=== PATIENT | male | born 1975 | race Caucasian/White ===

== ENCOUNTER 2020-04-27 08:46 | Emergency (ER) | payer OTHER, SELFPAY ==
--- NOTE | ~2020-04-27 | XR_ITS ---
XR ankle RT min 3V DATE: 04/27/2020 09:06 INDICATION: Right ankle pain and swelling. No known injury. TECHNIQUE: 4 views COMPARISON: None FINDINGS: There is mild lateral soft tissue swelling. No fracture or dislocation of the ankle or disruption of the ankle mortise is detected. IMPRESSION: Mild lateral soft tissue swelling Reviewed, dictated and finalized at location B. O GAME CREATOR
[2020-04-27 08:55] VITALS: BP 97/83; PULSE 65; RESP 16; TEMP 36.4; O2SAT 100
--- NOTE | 2020-04-27 09:10 | ED.GENADULT ---
HPI - General Adult General Chief complaint: Extremity Injury, Lower Stated complaint: rt ankle pain Source: patient Mode of arrival: ambulatory Limitations: no limitations History of Present Illness HPI narrative: 44 y/o male. PMH includes: HTN, HLD. Presents to today with acute complaints of RT outer ankle pain X past 1 week. Pt reports he initially had developed RT ankle pain after riding his exercise bike 1 week ago. There has been no falls or direct trauma relayed. Pain is worse with prolonged ambulation or bending. No erythema, warmth, ecchymosis, or posterior calf pain. He reports home care to have included Aleve and ice pack application, which did seem to help per client. No additional acute c/o upon PE. Related Data Home Medications Medication Instructions Recorded Confirmed atorvastatin 80 mg PO DAILY 04/27/20 04/27/20 ezetimibe 10 mg PO DAILY 04/27/20 04/27/20 lisinopril 10 mg PO DAILY 04/27/20 04/27/20 Allergies Allergy/AdvReac Type Severity Reaction Status Date / Time No Known Allergies Allergy Mild Unverified 06/27/08 15:10 Review of Systems Review of Systems: Narrative: CONSTITUTIONAL: Denies fever, chills, sweats. EYES: Denies visual changes, redness, discharge. ENT: Denies rhinorrhea, congestion, sore throat, otalgia. CARDIOVASCULAR: Denies chest pain, palpitations, edema. RESPIRATORY: Denies dyspnea, wheezing, cough GASTROINTESTINAL: Denies abdominal pain, nausea, vomiting, diarrhea. GENITOURINARY: Denies dysuria, hematuria, abnormal discharge SKIN: Denies rash or itching. MUSCULOSKELETAL: Denies acute back pain. Positive RT ankle pain. No myalgia. NEUROLOGIC: Denies numbness, or focal weakness. PSYCHIATRIC: Denies anxiety or depression. [facility] Family History Family History Mother Family history of lung cancer Social History Social History Alcohol intake: current Exam Narrative: Exam Narrative: GENERAL: This is a well-nourished, well-developed patient, in no apparent distress. HEAD: normocephalic, atraumatic. EYES: PERRL. Sclera clear/white. Vision is grossly intact. EARS: External ears normal, auditory canals clear and without drainage, TMs normal without perforation. Hearing grossly intact. NOSE: External nose normal with no obvious nasal discharge, nares without redness, no rhinorrhea. THROAT: Mucous membranes moist, posterior pharynx clear. NECK: Neck supple, non-tender without lymphadenopathy, masses or thyromegaly. CARDIOVASCULAR: Regular rate and rhythm without murmurs, gallops, or rubs. RLE pedal pulses are intact. RESPIRATORY: Clear to auscultation. Breath sounds equal bilaterally. No wheezes, rales, or rhonchi. GASTROINTESTINAL: Abdomen soft, non-tender, nondistended. Bowel sounds are active. No hepato-splenomegaly, or palpable masses. No guarding. SKIN: warm, intact with no suspicious lesions or rash, good texture and turgor. NEURO: awake, alert, and oriented to person, place and time. There were no obvious focal neurologic abnormalities. Steady gait EXTREMITIES: Normal range of motion. Normal Flexion and extension. There is lateral malleolus tenderness, without obvious deformity, erythema, or ecchymosis. There is minimal lateral malleolus soft tissue swelling, without gross edema. No calf tenderness. Negative Homans sign bilaterally. Neurovascular status is preserved. BACK: Nontender without deformity or crepitance. No flank tenderness. Course Course Emergency Course: Plain film radiology X-ray imaging RT ankle: Refer to Diagnostic imaging reports. Vital Signs Vital signs: Vital Signs Temperature 36.4 C L 04/27/20 08:55 Pulse Rate 65 04/27/20 08:55 Respiratory Rate 16 04/27/20 08:55 Blood Pressure 97/83 L 04/27/20 08:55 Pulse Oximetry 100 04/27/20 08:55 Temperature 36.4 C L 04/27/20 08:55 Pulse Rate 65 04/27/20 08:55 Respirat
== END 2020-04-27 09:28 | disposition home or self-care (01) ==
PROVIDERS: Emergency Provider Nurse Practitioner Adult Health
DX: S93.401A Sprain of unspecified ligament of right ankle, initial encounter (principal); S96.911A Strain of unspecified muscle and tendon at ankle and foot level, right foot, initial encounter; X50.3XXA Overexertion from repetitive movements, initial encounter; I10 Essential (primary) hypertension; E78.5 Hyperlipidemia, unspecified
CPT/HCPCS: 73610; 99203; G0463

== ENCOUNTER 2020-05-21 08:39 | Emergency (ER) | payer OTHER, SELFPAY ==
--- NOTE | ~2020-05-21 | XR_ITS ---
XR ankle RT min 3V 05/21/2020 09:23 Indication: Right ankle pain Procedure: 4 views right ankle Comparison: 04/27/2020 Findings: Mild lateral soft tissue swelling. Ankle mortise intact. There are loose bodies adjacent to the joint space. No acute fracture or traumatic malalignment. Impression: 1: No acute fracture. Reviewed, dictated and finalized at location A. ER ENGINEER Impression: 1: No acute fracture.
[2020-05-21 08:47] VITALS: BP 118/78; PULSE 97; RESP 17; TEMP 36.3; O2SAT 100
[2020-05-21 09:51] LABS: Basophils Percent Auto 0.3 % (0.2-1.2); Eosinophils Absolute Auto 0.1 K/mm3 (0-0.3); Eosinophils Percent Auto 0.9 % (0-4.4); Hematocrit 40.9 % (42.0-52.0); Hemoglobin 13.8 g/dL (14.0-18.0); Immature Granulocyte Absolute 0.03 K/mm3 (0.00-0.031); Immature Granulocyte Percent A 0.4 % (0-0.5); Lymphocytes Absolute Auto 1.38 K/mm3 (0.9-3.2); Lymphocytes Percent Auto 18.1 % (18.3-44.2); Mean Corpuscular HGB Conc 33.7 g/dl (32-36); Mean Corpuscular Hemoglobin 30.8 pg (26-34); Mean Corpuscular Volume 91.3 fl (80-100); Mean Platelet Volume 10.2 fl (7.4-10.4); Monocytes Absolute Auto 0.7 K/mm3 (0.1-0.6); Monocytes Percent Auto 9.7 % (2.6-8.5); Neutrophils Absolute Auto 5.4 K/mm3 (1.3-6.7); Neutrophils Percent Auto 70.6 % (45.5-73.1); Platelet Count Result 256 k/mm3 (150-375); Red Blood Count 4.48 M/mm3 (4.6-6.20); Red Cell Distribution Width 12.5 % (11.5-14.5); White Blood Count 7.6 K/mm3 (4.5-10.0)
[2020-05-21 10:13] LABS: Alanine Aminotransferase 57 U/L (4-50); Albumin Level 4.1 g/dL (3.5-5.1); Alkaline Phosphatase 70 U/L (38-126); Anion Gap 4 mmol/L (8-16); Aspartate Amino Transferase 27 U/L (17-59); Bilirubin,Total 0.8 mg/dL (0.2-1.3); Blood Urea Nitrogen 14 mg/dL (9-20); Calcium 9.5 mg/dL (8.4-10.2); Carbon Dioxide 30 mmol/L (22-30); Chloride 105 mmol/L (98-107); Estimated CRCL calculation 112 ml/min; Estimated Glomerular Filt Rate > 60; Glucose 110 mg/dL (75-110); Potassium 4.6 mmol/L (3.4-5.0); Sodium 139 mmol/L (137-145)
[2020-05-21 10:26] LABS: Uric Acid 5.9 mg/dL (3.5-8.5)
--- NOTE | 2020-05-21 10:35 | ED.GENADULT ---
HPI - General Adult General Chief complaint: Extremity Injury, Lower Stated complaint: right leg pain Time Seen by Provider: 05/21/20 08:44 Source: patient and family Mode of arrival: ambulatory Limitations: no limitations History of Present Illness HPI narrative: 45-year-old with a history of hyper tension, hypercholesteremia, gout here with complaints of right ankle pain and swelling since last 2 days. Patient stated he injured his ankle few weeks ago is being pedal playing golf but does not recall twisting his ankle or injuring his ankle. He also states that he has been having low-grade fever denies any cough or shortness of breath. Onset (ago): day(s) (2) Location: lower extremity (Right ankle) Severity: moderate Associated symptoms: fever/chills Treatments prior to arrival: none Related Data Home Medications Medication Instructions Recorded Confirmed atorvastatin 80 mg PO DAILY 04/27/20 04/27/20 ezetimibe 10 mg PO DAILY 04/27/20 04/27/20 lisinopril 10 mg PO DAILY 04/27/20 04/27/20 Allergies Allergy/AdvReac Type Severity Reaction Status Date / Time No Known Allergies Allergy Mild Verified 05/21/20 09:24 Review of Systems Review of Systems: All systems reviewed & are unremarkable except as noted in HPI and below Constitutional: Constitutional: Reports no additional constitutional complaints Eyes: Eyes: Reports no additional eye complaints ENT: Reports system reviewed and no additional complaints, except as documented Cardiovascular: Cardiovascular: Reports no additional cardiovascular complaints Respiratory: Respiratory: Reports no additional respiratory complaints Gastrointestinal: Gastrointestinal: Reports no additional gastrointestinal complaints Musculoskeletal: Musculoskeletal: Reports as per HPI Neurologic: Reports system reviewed and no additional complaints, except as documented PMFSH Family History Family History Mother Family history of lung cancer Social History Social History Alcohol intake: current Gender identity (if verbalized by the patient): Male Exam Narrative: Exam Narrative: GENERAL: Well-appearing, well-nourished, and in no acute distress. HEAD: Normocephalic, atraumatic. EYES: PERRLA and EOMI.. NECK: Supple. CHEST: Clear to auscultation. No respiratory distress. HEART: Regular rate and rhythm. No murmur heard. Normal peripheral pulses. ABDOMEN: Soft, nontender, nondistended, normal active bowel sounds. EXTREMITIES: Normal range of motion. Examination of the right ankle shows moderate soft tissue swelling around the lateral malleoli tender on palpation, no deformity SKIN: Warm, dry, no rash. NEURO: No focal deficits. Alert and oriented x3. PSYCH: Normal mood and affect. Course Course Emergency Course: With a history of gout with elevated CRP has has a regular history of IBS M of gouty arthritis as patient has been drinking wine on a regular basis. Advised him to cut down on his red meat, wine as this can potentially aggravate gout patient with nausea. ER advised him to take prednisone and colchicine. Advised him to follow-up with his primary doctor as well. Vital Signs Vital signs: Vital Signs Temperature 36.3 C L 05/21/20 08:47 Pulse Rate 97 05/21/20 08:47 Respiratory Rate 17 05/21/20 08:47 Blood Pressure 118/78 05/21/20 08:47 Pulse Oximetry 100 05/21/20 08:47 Temperature 36.3 C L 05/21/20 08:47 Pulse Rate 97 05/21/20 08:47 Respiratory Rate 17 05/21/20 08:47 Blood Pressure 118/78 05/21/20 08:47 Pulse Oximetry 100 05/21/20 08:47 Medical Decision Making Differential Diagnosis Differential Diagnosis: Ankle sprain, gouty arthritis, septic joint, ankle fracture Vital Signs Vital Signs: Vital Signs Temperature 36.3 C L 05/21/20 08:47 Pulse Rate 97 05/21/20 08:47 Respiratory Rate 17 05/21/20 08:47 Blood Pressu
[2020-05-21] MEDS: predniSONE 20 MG TABLET 60 MG PO (10:51)
[2020-05-21 10:55] VITALS: BP 121/76; PULSE 78; RESP 17; O2SAT 100
== END 2020-05-21 10:57 | disposition home or self-care (01) ==
PROVIDERS: Emergency Provider Family Medicine; PCP Internal Medicine
DX: M10.9 Gout, unspecified (principal); I10 Essential (primary) hypertension; E78.00 Pure hypercholesterolemia, unspecified
CPT/HCPCS: 36415; 73610; 80053; 84550; 85025; 86140; 99283; J7512

== ENCOUNTER 2021-03-04 13:44 | Outpatient (CLI) | payer OTHER, SELFPAY ==
--- NOTE | ~2021-03-04 | CT_ITS ---
EXAMINATION: CT abdomen pelvis w con EXAM DATE: 03/04/2021 14:21 INDICATION: Upper middle abdominal pain, nausea. TECHNIQUE: Spiral CT of the abdomen and pelvis was performed following intravenous injection of 100 m L Omnipaque 350. Axial, coronal and sagittal images of the abdomen and pelvis were reviewed. The do se-length product (DLP) for this examination was 542.15 mGy-cm. The exposure was tailored according to patient size (auto mA exposure control), and iterative reconstruction (ASIR) was used as additiona l dose reduction technique. There is no prior study for comparison. FINDINGS: The liver, spleen, adrenal glands and pancreas are unremarkable. Gallbladder is contracted with dense wall, regions of wall calcification, chronic findings. Gallbladder does not appear obstru cted but there is mild indistinct fat surrounding the gallbladder. Possible chronic cholecystitis. P ortal and splenic veins are patent. Kidneys enhance symmetrically. There is no hydronephrosis. Left renal lesion probably cyst measuring about 2.5 cm. The prostate is unremarkable. The bladder is un remarkable. There is no retroperitoneal or pelvic lymphadenopathy. There is mild scattered arterio sclerotic disease. The appendix is normal. The stomach and small bowel are unremarkable. There is expected amount of c olonic stool. No free intraperitoneal gas. The heart is normal in size. There are no pericardial or pleural effusions. The lung bases are unremarkable. There are no osteoblastic or osteolytic les ions identified. IMPRESSION: 1. Contracted gallbladder with wall calcifications and mild adjacent fat stranding. Possible chronic cholecystitis. 2. No acute findings suspected. Reviewed, dictated and finalized at location A. IMPRESSION: 1. Contracted gallbladder with wall calcifications and mild adjacent fat stran ding. Possible chronic cholecystitis. 2. No acute findings suspected.
[2021-03-04 14:12] LABS: Estimated Glomerular Filt Rate > 60
[2021-03-04 15:05] LABS: Amylase 79 U/L (30-110); Lipase 105 U/L (23-300)
== END 2021-03-04 13:45 | disposition home or self-care (01) ==
PROVIDERS: PCP Internal Medicine; Visit Provider Internal Medicine
DX: R10.9 Unspecified abdominal pain (principal)
CPT/HCPCS: 74177; 82150; 83690; Q9967

== ENCOUNTER 2021-03-05 10:16 | Emergency (ER) | payer OTHER, SELFPAY ==
--- NOTE | ~2021-03-05 | US_ITS ---
. EXAMINATION: US right upper quadrant DATE: 03/05/2021 12:45 INDICATION: Abdominal pain TECHNIQUE: Multiple grayscale and Doppler ultrasound images of the abdomen were obtained. COMPARISON: None FINDINGS: The pancreatic body appears normal but is suboptimally visualized. The pancreatic head and tail are n ot visualized. Visualized proximal inferior vena cava is normal. Liver has normal echogenicity and co ntour, with a smooth surface. No liver lesion identified. No intrahepatic biliary duct dilation suspe cted. Portal venous flow was seen in the hepatopetal, normal direction and has normal Doppler wavefor m. 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 No definitive intraluminal shadowing cholelithiasis although sensitivity is decreased by the decompressed state. Common bile duct is normal measuring 2 mm in maximal diameter. Sonographic Jacobs sign was reported as negative by the microelectronics assembler. IMPRESSION: 1. Decompressed gallbladder with mildly thickened partially calcified wall consistent with likely chr onic cholecystitis in porcelain gallbladder. No definitive gallstones although assessment is limited by the decompressed state. Reviewed, dictated and finalized at location A. IMPRESSION: 1. Decompressed gallbladder with mildly thickened partially calcified wall cons istent with likely chronic cholecystitis in porcelain gallbladder. No definitiv e gallstones although assessment is limited by the decompressed state.
[2021-03-05 10:50] VITALS: BP 121/82; PULSE 63; RESP 18; TEMP 36.8; O2SAT 100
[2021-03-05] MEDS: FAMOTIDINE 20 MG/2 ML VIAL IV PUSH (11:14)
[2021-03-05] MEDS: ONDANSETRON INJ 4 MG/2 ML VIAL IV PUSH (11:15)
[2021-03-05] MEDS: SODIUM CHLORIDE 0.9% IV 1,000 ML 999 ML IV CONT (11:15)
[2021-03-05 11:17] LABS: Basophils Percent Auto 0.2 % (0.2-1.2); Eosinophils Absolute Auto 0.1 K/mm3 (0-0.3); Eosinophils Percent Auto 1.7 % (0-4.4); Hematocrit 41.6 % (42.0-52.0); Hemoglobin 14.4 g/dL (14.0-18.0); Immature Granulocyte Absolute 0.01 K/mm3 (0.00-0.031); Immature Granulocyte Percent A 0.2 % (0-0.5); Lymphocytes Absolute Auto 1.56 K/mm3 (0.9-3.2); Lymphocytes Percent Auto 30.1 % (18.3-44.2); Mean Corpuscular HGB Conc 34.6 g/dl (32-36); Mean Corpuscular Hemoglobin 31.5 pg (26-34); Mean Platelet Volume 9.9 fl (7.4-10.4); Monocytes Absolute Auto 0.4 K/mm3 (0.1-0.6); Monocytes Percent Auto 7.3 % (2.6-8.5); Neutrophils Absolute Auto 3.1 K/mm3 (1.3-6.7); Neutrophils Percent Auto 60.5 % (45.5-73.1); Platelet Count Result 203 k/mm3 (150-375); Red Blood Count 4.57 M/mm3 (4.6-6.20); Red Cell Distribution Width 12.3 % (11.5-14.5); White Blood Count 5.2 K/mm3 (4.5-10.0)
--- NOTE | 2021-03-05 11:32 | ED.GENADULT ---
HPI - General Adult General Chief complaint: Abdominal Pain <SHAHID Hagen Last Filed: 03/05/21 13:30> Stated complaint: Gall bladder issues <SHAHID Hagen Last Filed: 03/05/21 13:30> Time Seen by Provider: 03/05/21 11:00 <SHAHID Hagen Last Filed: 03/05/21 13:30> Source: patient and RN notes reviewed <SHAHID Hagen Last Filed: 03/05/21 13:30> Mode of arrival: ambulatory <SHAHID Hagen Last Filed: 03/05/21 13:30> Limitations: no limitations <SHAHID Hagen Last Filed: 03/05/21 13:30> History of Present Illness HPI narrative: Patient is a 45-year-old male who presents per request of his primary care for evaluation of upper abdominal pain that has been present now for the last several days patient had outside CAT scan imaging yesterday. Patient on arrival notes that the tramadol he was prescribed is helping he no longer has pain but he did have some chills and feels fatigued this morning which brought him to the emergency department he denies any vomiting diarrhea URI symptoms and on arrival does not appear uncomfortable or distressed <SHAHID Hagen Last Filed: 03/05/21 13:30> Related Data Home medications: Home Medications Medication Instructions Recorded Confirmed atorvastatin 80 mg PO DAILY 04/27/20 02/28/21 ezetimibe 10 mg PO DAILY 04/27/20 02/28/21 lisinopril 10 mg PO DAILY 04/27/20 02/28/21 <SHAHID Hagen Last Filed: 03/05/21 13:30> Allergies/adverse reactions: Allergies Allergy/AdvReac Type Severity Reaction Status Date / Time No Known Allergies Allergy Mild Verified 03/05/21 10:53 <SHAHID Hagen Last Filed: 03/05/21 13:30> Review of Systems Review of Systems: All systems reviewed & are unremarkable except as noted in HPI and below <SHAHID Hagen Last Filed: 03/05/21 13:30> PMFSH Past Medical History Medical History: Medical History Hyperchloremia <Chi Adler PA-C - Last Filed: 03/05/21 13:30> Family History Family History: Family History Mother Family history of lung cancer <Chi Adler PA-C - Last Filed: 03/05/21 13:30> Social History Social History: Social History Smoking status: Never smoker Alcohol intake: current Gender identity (if verbalized by the patient): Male <Chi Adler PA-C - Last Filed: 03/05/21 13:30> Exam Narrative: GENERAL: Well-appearing, well-nourished, and in no acute distress. HEAD: Normocephalic, atraumatic. EYES: PERRLA and EOMI. ENT: Nares clear, no rhinorrhea or epistaxis. Mucous membranes moist. CHEST: Clear to auscultation. No respiratory distress. No wheezes rales or rhonchi HEART: Regular rate and rhythm. No murmur heard. Normal peripheral pulses. ABDOMEN: Soft, nontender, nondistended EXTREMITIES: Normal range of motion. No edema. SKIN: Warm, dry, no rash. NEURO: No focal deficits. Alert and oriented x3. PSYCH: Normal mood and affect. <Chi Adler PA-C - Last Filed: 03/05/21 13:30> Course Course Emergency Course: Patient was evaluated in the emergency department imaging was obtained discussion was made with the surgeon Dr. Richard who reviewed the case would like the patient to follow in clinic for further evaluation ABCs and vital signs intact and stable. Patient agrees with the treatment plan and agrees to return if symptoms worsen <Chi Adler PA-C - Last Filed: 03/05/21 13:30> Consultations Consultation #1: Discussed case with general surgeon Dr. Richard who would like the patient to adhere to a low-fat diet and to follow-up on an outpatient basis with reasons to return <SHAHID Hagen Last Filed: 03/05/21 13:30> Date: 03/05/21 <Chi Farooq
[2021-03-05 11:33] VITALS: BP 118/79; PULSE 68; RESP 23; O2SAT 100
[2021-03-05 11:52] LABS: Alanine Aminotransferase 42 U/L (4-50); Albumin Level 4.4 g/dL (3.5-5.1); Alkaline Phosphatase 62 U/L (38-126); Anion Gap 9 mmol/L (8-16); Aspartate Amino Transferase 28 U/L (17-59); Bilirubin,Total 0.6 mg/dL (0.2-1.3); Blood Urea Nitrogen 14 mg/dL (9-20); Calcium 9.5 mg/dL (8.4-10.2); Carbon Dioxide 28 mmol/L (22-30); Chloride 105 mmol/L (98-107); Estimated CRCL calculation 91 ml/min; Estimated Glomerular Filt Rate > 60; Glucose 92 mg/dL (65-110); Lipase 140 U/L (23-300); Potassium 4.2 mmol/L (3.4-5.0); Sodium 142 mmol/L (137-145)
[2021-03-05 12:24] LABS: Add Urine Microscopic? NO; Appearance Urine Clear (Clear); Bilirubin Urine Negative (Negative); Blood Urine Negative (Negative); Color Urine Yellow (Yellow); Glucose Urine UA Negative (Negative); Ketones Urine Negative (Negative); Leukocyte Esterase Ur Negative LEU/UL (Negative); Nitrate Urine Negative (Negative); Protein Urine Negative (Negative); Specific Grav Ur 1.016 (1.001-1.035); Urobilinogen Urine Negative mg/dL (<2.0)
[2021-03-05 14:05] VITALS: BP 123/76; PULSE 65; RESP 18; O2SAT 100
== END 2021-03-05 14:06 | disposition home or self-care (01) ==
PROVIDERS: Emergency Medicine Emergency Medical Services; Emergency Provider Emergency Medicine; PCP Internal Medicine
DX: R10.10 Upper abdominal pain, unspecified (principal); E87.8 Other disorders of electrolyte and fluid balance, not elsewhere classified; R93.2 Abnormal findings on diagnostic imaging of liver and biliary tract
CPT/HCPCS: 36415; 76705; 80053; 81003; 83690; 85025; 96361; 96374; 96375; 99284; J2405; J7030

== ENCOUNTER 2021-03-12 09:11 | Outpatient (CLI) | payer OTHER, SELFPAY ==
--- NOTE | ~2021-03-12 | XR_ITS ---
XR UGIAC w barium swallow DATE: 03/12/2021 09:55 INDICATION: Upper abdominal pain TECHNIQUE: Fluoroscopy and rapid sequence spot radiographs and overhead radiographs during oral inges tion of barium. Spot and overhead radiographs of the stomach and duodenum. 1.0 minutes fluoroscopy time 170 images 34.549 DAP COMPARISON: None FINDINGS: There is cricopharyngeal dysfunction. No stricture, mucosal fold thickening, erosion, ulceration or intraluminal mass lesion of the esophag us, stomach or duodenum is detected. There is a small sliding hiatal hernia. The proximal small bowel mucosal pattern is normal. IMPRESSION: Cricopharyngeus muscle dysfunction Small sliding hiatal hernia Reviewed, dictated and finalized at Location A. Reviewed, dictated and finalized at location A.
== END 2021-03-12 09:12 | disposition home or self-care (01) ==
LOC: ANHIMG 09:13
PROVIDERS: PCP Internal Medicine; Visit Provider Surgery
DX: R10.10 Upper abdominal pain, unspecified (principal); K82.8 Other specified diseases of gallbladder; R13.19 Other dysphagia; K44.9 Diaphragmatic hernia without obstruction or gangrene
CPT/HCPCS: 74246

== ENCOUNTER 2021-03-20 07:59 | Outpatient (CLI) | payer OTHER, SELFPAY ==
--- NOTE | ~2021-03-20 | NM_ITS ---
EXAMINATION: NM hepatobiliary wo pharm DATE: 03/20/2021 12:20 INDICATION: Upper abdominal pain COMPARISON: CT dated 03/04/2021 and ultrasound dated 03/05/2021 TECHNIQUE: 4.2 mCi Tc-99m mebrofenin (Choletec) was administered intravenously. Scintigraphic images of the abdomen were obtained for one hour. Additional 1 hour and 4 hour delayed scintigrams were obt ained in the anterior and right lateral positions. FINDINGS: There is normal clearance of radiotracer from the blood pool. There is homogeneous tracer u ptake by the liver. Activity progresses to the common bile duct and bowel by 20 minutes. There is pr ogressive excretion of activity into the bowels over the subsequent 4 hours of imaging. No definitive activity identified in the gallbladder throughout the course of the examination. IMPRESSION: 1. Nonvisualization of the gallbladder over 4 hours of imaging which is consistent with acute cholec ystitis. False positives can however be seen in the setting of chronic cholecystitis which is also ayala ggested based on appearance of the gallbladder on prior CT and ultrasound. Reviewed, dictated and finalized at location A. IMPRESSION: 1. Nonvisualization of the gallbladder over 4 hours of imaging which is consis tent with acute cholecystitis. False positives can however be seen in the setti ng of chronic cholecystitis which is also suggested based on appearance of the gallbladder on prior CT and ultrasound.
== END 2021-03-20 08:00 | disposition home or self-care (01) ==
LOC: ANHIMG 08:02
PROVIDERS: PCP Internal Medicine; Visit Provider Surgery
DX: R10.10 Upper abdominal pain, unspecified (principal); K82.8 Other specified diseases of gallbladder
CPT/HCPCS: 78226; A9537

== ENCOUNTER 2021-06-10 09:22 | Outpatient (CLI) | payer OTHER, SELFPAY ==
[2021-06-10 11:08] LABS: Influenza A QL RT-PCR Negative (Negative); Influenza B QL RT-PCR Negative (Negative); SARS-CoV-2 RNA PCR Positive (Negative)
== END 2021-06-10 09:23 | disposition home or self-care (01) ==
LOC: CHSLAB 09:26
PROVIDERS: PCP Internal Medicine; Visit Provider Internal Medicine
DX: U07.1 COVID-19 (principal); R50.9 Fever, unspecified
CPT/HCPCS: 87502; C9803; U0003; U0005

== ENCOUNTER → 2021-12-31 15:16 | Outpatient (CLI) | payer OTHER, SELFPAY ==
--- NOTE | ~2021-12-31 | US_ITS ---
EXAMINATION: US renal BI DATE: 12/31/2021 15:41 INDICATION: N28.1 - Cyst of kidney, acquired TECHNIQUE: Multiple grayscale and Doppler ultrasound images of the kidneys were obtained. COMPARISON: CT abdomen and pelvis 03/04/2021. FINDINGS: The right kidney measures 12.6 x 6.7 x 5.8 cm. The left kidney measures 11.7 x 5.5 x 6.1 cm. The kidn eys demonstrate normal parenchymal echogenicity.No sonographic evidence of nephrolithiasis. 2.2 cm si mple left midpole cyst. No other mass detected. No hydronephrosis. The bladder is normal. IMPRESSION: 1. Normal renal sonogram findings. 2.2 cm simple left midpole cyst. Reviewed, dictated and finalized at location K.
== END ==
LOC: EXPGOSH 01-01 07:24 → EXPGOSHRAD 01-03 14:41
PROVIDERS: PCP Internal Medicine; Visit Provider Internal Medicine
DX: N28.1 Cyst of kidney, acquired (principal)
CPT/HCPCS: 76775

== ENCOUNTER → 2023-01-05 07:55 | Outpatient (CLI) | payer OTHER, SELFPAY ==
--- NOTE | ~2023-01-05 | XR_ITS ---
EXAMINATION: XR knee RT min 4V DATE: 01/05/2023 08:41 INDICATION: Right knee pain. TECHNIQUE: 5 views of right knee were obtained. COMPARISON: None. FINDINGS: Bone alignment is normal. No fracture. There are interference screws from anterior cruciate ligament reconstruction. There is severe osteoarthritis of medial compartment, moderate osteoarthrit is of lateral compartment, and mild osteoarthritis of patellofemoral compartment. No knee joint effus ion. IMPRESSION: 1. Severe right knee osteoarthritis. Reviewed, dictated and finalized at location A.
--- NOTE | ~2023-01-05 | US_ITS ---
EXAMINATION: US abdomen limited DATE: 01/05/2023 08:41 INDICATION: Other specified diseases of the gallbladder. TECHNIQUE: Multiple grayscale and Doppler ultrasound images of the abdomen were obtained. COMPARISON: CT abdomen and pelvis 03/04/2021 FINDINGS: Abdominal aorta is normal in caliber. The visualized portions of the head and body of the p ancreas are normal. The liver is normal without focal lesion. There is normal flow in main portal vei n. The gallbladder is normal in size. There are gallstones in the gallbladder. No gallbladder wall th ickening or sonographic Jacobs sign. The common duct is normal and measures 3 mm. IMPRESSION: 1. Cholelithiasis. No evidence of acute cholecystitis. Reviewed, dictated and finalized at location A.
== END ==
PROVIDERS: PCP Internal Medicine; Visit Provider Internal Medicine
DX: K82.8 Other specified diseases of gallbladder (principal); M17.11 Unilateral primary osteoarthritis, right knee; K80.20 Calculus of gallbladder without cholecystitis without obstruction
CPT/HCPCS: 73564; 76705

== ENCOUNTER 2024-02-23 16:33 | Outpatient (CLI) | payer OTHER, SELFPAY ==
--- NOTE | ~2024-02-23 | XR_ITS ---
XR knee RT min 4V Ordering provider: Navid Perez MD History: . M17.11 - Unilateral primary osteoarthritis, right knee . Comparison: None. FINDINGS: BONES: No acute fracture or dislocation. Postoperative changes for ACL reconstruction. JOINT SPACES: Narrowing of the medial compartment. Marginal osteophytes are also noted. SOFT TISSUES: Normal. IMPRESSION: No acute osseous abnormality right knee. Mild to moderate osteoarthritic changes. Postoperative changes. Reviewed, dictated and finalized at location A.
== END 2024-02-23 16:34 | disposition home or self-care (01) ==
PROVIDERS: PCP Internal Medicine; Visit Provider Orthopaedic Surgery
DX: M17.11 Unilateral primary osteoarthritis, right knee (principal)
CPT/HCPCS: 73564

== ENCOUNTER 2024-10-10 09:42 | Outpatient (CLI) | payer OTHER, SELFPAY ==
--- NOTE | ~2024-10-10 | US_ITS ---
Limited Abdominal Sonogram: Real-time sonographic imaging of the right upper quadrant was performed. Clinical History: Other disease of gallbladder Findings: The liver appears normal with no evidence of mass lesion or bile duct dilatation. Main por lulú vein demonstrates normal direction of flow. The gallbladder is well distended, and appears normal with no evidence of gallstone or wall thickening. The common bile duct measures 2 mm. The visualize d pancreas, aorta, and IVC are unremarkable. Impression: No significant abnormality seen. Reviewed, dictated and finalized at location M. Impression: No significant abnormality seen.
== END 2024-10-10 09:43 | disposition home or self-care (01) ==
LOC: GOSHIMG 09:42
PROVIDERS: PCP Internal Medicine; Visit Provider Internal Medicine
DX: K82.8 Other specified diseases of gallbladder (principal)
CPT/HCPCS: 76705

== ENCOUNTER 2025-02-23 09:57 | Outpatient (CLI) | payer OTHER, SELFPAY ==
--- OUTSIDE RECORDS SUMMARY | 2025-02-23 10:32 | XMS_ITS | Clinical Summary ---
Author Organization [facility] Address [address] [place] [address] Care Team Providers Care Marine Firer Name Role Phone Unavailable Primary Care Provider Unavailabl e Encounters Date Type Department Care Team Description 02/07/2025 External Device Data [facility]STRACTION Provider, Abstract 02/07/2025 External Device Data [facility] Provider, Abstract 02/07/2025 External Device Data [facility]STRA[facility] Provider, Abstract from Last 3 Months Social History Tobacco Use Types Packs/Day Years Used Date Smoking Tobacco: Never Assessed Sex and Gender Information Value Date Recorded Sex Assigned at Not on file Legal Sex Male 2:58 PM CDT Gender Identity Not on file Sexual Orientation Not on file Plan of Treatment Health Maintenance Due Date Last Done Comments DTAP/TDAP/TD VACCINES (1 - Tdap) 1992 HEPATITIS B VACCINES (1 of 3 - 19+ 3-dose series) 04/09 COLORECTAL SCREENING 2018 Colorectal Cancer Screening 2018 FIT-DNA Q 3 years 2018 FIT/FOBT Q 1 year 2018 Flex Sig/CT Colonography Q 5 years 2018 ZOSTER VACCINE (1 of 2) 2023 INFLUENZA VACCINE (#1) 2025 Insurance RX [employer] Member Subscriber Plan / Payer (Ef fective 2025-Present) Name:Diego Rhoades Relation to Subscriber:Self Name:Diego Rhoades Subscriber ID:Not on file Payer ID:Not on file Group ID:[id number] Type:RX Commercial Address: [address]
--- OUTSIDE RECORDS SUMMARY | 2025-02-23 10:32 | XMS_ITS | Clinical Summary ---
Author Organization [facility] Address [address] [place] [id number] Care Team Providers Care Supervisor White Sugar Name Role Phone Jerry Michael MD Primary Care Provider [phone] Allergies No known active allergies Medications aspirin 81 mg enteric coated tablet Take 1 tablet (81 mg total) by mouth daily 30 tablet 11 08/31/2019 Active lisinopriL (PRINIVIL,ZESTRIL ) 10 mg tabletIndications :Essential hypertension TAKE 1 TABLET(10 MG) BY MOUTH DAILY 90 tablet 1 12/11/2020 Active ezetimibe (ZETIA) 10 mg tabletIndications :Coronary artery disease involving [place] coronary artery of [place] heart without angina pectoris TAKE 1 TABLET(10 MG) BY MOUTH DAILY 90 tablet 3 02/07/2021 Active atorvastatin (LIPITOR) 80 mg tabletIndications :Mixed hyperlipidemia,Ag [place] coronary artery calcium score less than 100 TAKE 1 TABLET(80 MG) BY MOUTH DAILY 90 tablet 03/10/2021 Active famotidine (PEPCID) 20 mg tablet Take 20 mg by mouth 2 (two) times a day 04/09/2021 Active Active Problems Problem Noted Date Diagnosed Date Hypertension 11/03/2014 Hyperlipidemia 11/03/2014 Unspecified hemorrhoids with other complication 08/18/2008 Resolved Problems Problem Noted Date Diagnosed Date Resolved Date Vitamin D deficiency disease 11/03/2014 07/07/2018 Encounters Date Type Department Care Team Description 12/30/2024 Home Infusion [facility] Home Infusion Therapy [address] [place] [address] Rebeca Mcfadden from Last 3 Months Immunizations Immunization Administration Dates Next Due Influenza, Quadrivalent, Spl it, Preservative Free, Intramuscular 02/08/2020,04/06/2019 Influenza, Trivalent, IM (MDV) 06/18/2012 Influenza, Trivalent, Preservative Free, Intramu scular 03/24/2013 Influenza, Unspecified 05/08/2012 Pneumococcal Polysaccharide PPV23 06/08/2001 Tdap 07/06/2015 Surgical History Surgery Date Site/Laterality Comments AL REPAIR PRIMARY TORN LIGM& /CAPSULE KNEE CRUCIAT 06/08/1994 - 06/07/1995 Right Medical History Medical History Date Comments Pain of hand History of eczema Hypertension Hyperlipidemia Gout Family History Medical History Relation Name Comments Hyperlipidemia Brother Hypertension Brother Heart attack Father Hypertension Father Sudden Cardiac Father Lung cancer Mother non-smoker Hyperlipidemia Sister 1 Hypertension Sister 1 Hyperlipidemia Sister 2 Hypertension Sister 2 Colon cancer Neg Hx Prostate cancer Neg Hx Relation Name Status Comments Brother Alive Father Mother Sister 1 Alive Sister 2 Alive Social History Tobacco Use Types Packs/Day Years Used Date Smoking Tobacco: Former Cigarettes 0.5 3 0 06/08/1991 - 06/08/1994 Smokeless Tobacco: Never Alcohol Use Standard Drinks/Week Comments Yes 0 (1 standard drink = 0.6 oz pure alcohol) 5-6 drinks, three times per week AUDIT-C Answer Date Recorded Q1: How often do you have a drink containing alc ohol? 2-3 times a week 04/17/2021 Q2: How many drinks containi ng alcohol do you have on a typical day when you are drinking? 3 or 4 04/17/2021 Frequency of Binge Drinking Not on file 04/08 PHQ-2 Answer Date Recorded PHQ-2 Score 0 07/08/2019 Personal Safety Answer Date Recorded Getting School Help Needed Not on file 08/21 Sex and Gender Information Value Date Recorded Sex Assigned at Not on file Legal Sex Male 4:49 AM [employer] Gender Identity Not on file Sexual Orientation Straight 07/08/2019 12 :24 PM [employer]IAN Obstetrics History Last Filed Vital Signs Vital Sign Reading Time Taken Comments Blood Pressure 146/89 10/07/2021 4:07 PM CDT Pulse 62 10/07/2021 4:07 PM CDT Temperature 36.2 C (97.2 F) 04/17/2021 11:15 AM [employer]IAN Respiratory Rate 16 04/17/2021 11:35 AM [employer]IE[employer]IAN Oxygen Saturation 100% 10/07/2021 4:07 PM CDT Inhaled Oxygen Concentration - - Weight 93.9 kg (207 lb) 10/07/2021 4:07 PM CDT Height 185.4 cm (6' 1) 10/07/2021 4:07 PM CDT Body Mass Index 27.31 10/07/2021 4:07 PM CDT Plan of Treatment Health Maintenance Due Date Last Done Comments Colon Cancer Screening-Colonoscopy 1973 Hepatitis C Screening 1973 Prostate Cancer Screening-PSA 1973 Hepatitis B Screening 1991 Depression Screening 07/08/2020 07/08/2019, 07/07/19 19 Regular Well Visit/Exam 18-64 02/07/2021 02/08/2020, 07/08/2019, 07/08/2019, Additional history exists Zoster Vaccine (1 of 2) 2023 Influenza Vaccine (#1) 2025 0, 04/06/2019, 03/24/2013, Additional history exists DTaP/Tdap/Td Vaccine (2 - Td or Tdap) 07/06/2025 07/06/2015 Pneumococcal vaccine <65 Aged Out 06/08/2001 No longer eligible based on patient's age to complete this topic Insurance [employer] [facility] Advance Directives For more information, please contact: [phone] * Full Code (Latest Code Status on File) Date Activated Date Inactivated Comments 04/17/2021 10:39 AM 04/17/2021 3:50 PM Care Teams Supervisor White Sugar Relationship Specialty Start Date End Date Jerry Michael MD [address] [facility] [place] [id number] PCP - General Internal Medicine 03/29/21
--- OUTSIDE RECORDS SUMMARY | 2025-02-23 10:32 | XMS_ITS | Clinical Summary ---
Author Organization [facility] Address [address] [place] [id number] Care Team Providers Care Morphology Teacher Name Role Phone Unavailable Primary Care Provider Unavailabl e Social History Tobacco Use Types Packs/Day Years Used Date Smoking Tobacco: Never Assessed Sex and Gender Information Value Date Recorded Sex Assigned at Not on file Legal Sex Male 8:22 PM CDT Gender Identity Not on file Sexual Orientation Not on file Plan of Treatment Health Maintenance Due Date Last Done Comments Colorectal Cancer Screening Colonoscopy (10 Years) 1973 Annual Physical 1976 Hepatitis C 1991 DTaP, Tdap and Td Vaccines ( 1 - Tdap) 1992 Hepatitis B Vaccines (1 of 3 - 19+ 3-dose series) 1992 Pneumococcal Vaccine: 50+ Ye ars (1 of 1 - PCV) 2023 Zoster Vaccines (1 of 2) 2023 COVID-19 Vaccine ( - 2023-2 5 season) 2025 Meningococcal B Vaccine Aged Out No l onger eligible based on patient's age to complete this topic Meningococcal Vaccine Aged Out No kristine shaista eligible based on patient's age to complete this topic RSV Immunizations Under 20 Months Aged Out No longer eligible based on patient's age to complete this topic
--- OUTSIDE RECORDS SUMMARY | 2025-02-23 10:32 | XMS_ITS | Clinical Summary ---
Author Organization [facility] Address [address] [place] [address] Care Team Providers Care Behavioral Health Consultant Name Role Phone Benjamin White MD Primary Care Provider Unav ailable Source Comments [facility],non-owned Affiliates and Associated Physician Practices is amultiple site organization consisting of ambulatory clinics and hospital sitesin [place], [place], [place] and [place]. This disclosure is being madepursuant to the Care Everywhere program and may not contain all information available regarding this patient. Last updated 18.[facility] Allergies No known active allergies Medications * Be aware that medications may not be up to date on this document. Alwaysverify current medications with the patient. atorvastatin (LIPITOR) 40 MG tablet Take 1 Tab by mouth at bedtime. 90 Tab 3 10/17/2013 Active lisinopril (PRINIVIL; ZESTRIL) 10 MG tablet Take 1 Tab by mouth once daily. 90 Tab 1 07/27/2014 Active famotidine (PEPCID) 20 MG tabletIndication s:Heartburn Take 1 Tab by mouth once daily 30 Tab 05/05/2016 Active benzonatate (TESSALON) 200 MG capsuleIndicatio ns:Acute upper respiratory infection Take 1 Cap by mouth 3 times daily as needed for Cough 30 Cap 05/05/2016 Active Active Problems Problem Noted Date Diagnosed Date Allergic rhinitis 11/02/2013 Obstructive tonsils and adenoids 11/02/2013 Routine general medical exam ination at a health care facility 10/25/13 11/02/2013 Routine general medical exam ination at a health care facility 08/27/12 09/03/2012 Routine general medical exam ination at a health care facility07/01/11 07/03/2011 Essential hypertension 08/18/2008 Overview (03/08/2015): Mixed hyperlipidemia 08/18/2008 Family History of Cardiovascular Disease 009 Unspecified hemorrhoids with other complication 08/18/2008 Screening for cardiovascular condition 9 Overview (08/18/2008): Stress echocardiogram 12/08/02 Immunizations Immunization Administration Dates Next Due FLU VACCINE TRI IIV3 SPLIT PF IM (FLUVIRIN) 03/08 INFLUENZA VACCINE 05/08/2012 PNEUMOCOCCAL PPSV23 06/08/2001 Family History Medical History Relation Name Comments CAD (Coronary Artery Disease) Father Heart Failure Father Hypertension Father Hypertension Mother Lung Cancer Mother Relation Name Status Comments Brother Alive 1 brother (elev ated chol) Father (Age 58) heart alyson ck Mother (Age 44) lung cance r Sister Alive 2 sisters (elev ated chol) Social History Tobacco Use Types Packs/Day Years Used Date Smoking Tobacco: Never Smokeless Tobacco: Never Tobacco Cessation:Counseling Given: No Alcohol Use Standard Drinks/Week Comments Yes 2.5 (1 standard drink = 0.6 oz p ure alcohol) Sex and Gender Information Value Date Recorded Sex Assigned at Not on file Legal Sex Male 6:26 AM [employer] Gender Identity Not on file Sexual Orientation Not on file Occupation Industry Job Start Date Job End Date sales Not on file Not on file Not on file Last Filed Vital Signs Vital Sign Reading Time Taken Comments Blood Pressure 118/82 05/05/2016 12:28 PM [employer] Pulse 86 05/05/2016 12:28 PM [employer] Temperature 36.6 C (97.9 F) 05/05/2016 12:28 PM [employer] Respiratory Rate 18 05/05/2016 12:28 PM [employer] Oxygen Saturation - - Inhaled Oxygen Concentration - - Weight 93 kg (205 lb) 05/05/2016 12:28 PM [employer] Height 185.4 cm (6' 1) 05/05/2016 12:28 PM [employer] Body Mass Index 27.05 05/05/2016 12:28 PM [employer] Plan of Treatment Health Maintenance Due Date Last Done Comments ERICA (AGES 45-75) - COL ON CA SCREENING 1973 COLON MONITORING 1973 COLONOSCOPY - COLON CA SCREENING 1973 CT COLONOGRAPHY - COLON CA SCREENING 1973 Colorectal Cancer Screening 1973 FIT - COLON CA SCREENING 1973 FLEX SIG - COLON CA SCREENING 1973 HIV SCREENING 1988 HEPATITIS C SCREENING 04/24/1991 DTAP/TDAP/TD VACCINES (1 - Tdap) 1992 HEPATITIS B VACCINE (1 of 3 - 19+ 3-dose series) 1992 PNEUMOCOCCAL VACCINE 50+ (2 of 2 - PCV) 2023 06/08/2001 ZOSTER VACCINE (1 of 2) 2023 DEPRESSION SCREENING 06/08/2024 COVID-19 VACCINE (1 - 2023-2 5 season) 2025 INFLUENZA VACCINE (#1) 2025 3, 05/08/2012 HIB VACCINE Aged Out No longer eligi ble based on patient's age to complete this topic HPV VACCINE Aged Out No longer eligi ble based on patient's age to complete this topic MENINGOCOCCAL (Group B) VACCINE SHARED DECISION-MAKING Aged Out No longer eligible based on patient's age to complete this topic MENINGOCOCCAL GROUPS A/C/Y/W VACCINE Aged Out No longer eligible b ased on patient's age to complete this topic Insurance [facility] Care Teams Behavioral Health Consultant Relationship Specialty Start Date End Date Benjamin White MD PCP - General 09/14/08
--- NOTE | 2025-03-17 11:15 | P.SLEEP_ITS ---
Sleep Study Date of Study: 02/23/25 Ordering Provider: Jerry Mcihael MD Interpreting Physician: Preethi Rivera MD Sleep Study Type: Split Polysomnogram Height: 1.85 m Weight: 92.986 kg Body Mass Index: 27.0 Neck Circumference (inches): 16.25 Joy: 8 Reason for Sleep Study Known obstructive sleep apnea, poor quality sleep, nasal allergies, poor response to oral appliance * 01/12/2023 [facility] BMI 26.4, duration 7 hours 37 minutes, AHI 7.1 oxygen desaturation index 7.2, average saturation 96%, lowest desaturation 86%, baseline 99%. He had 54 obstructive apneas, pulse 40 7-96, average pulse 65. Treated with auto PAP Sleep History Diego Rhoades is a 49-year-old man with difficulty sleeping, has used an oral appliance without significant improvement in previously documented obs tructive sleep apnea. He has nasal allergies, his use nasal sprays. He occasionally awakens from sleep feeling short of breath. He rarely wakes at night with heartburn, belching or coughing.??He occasionally snores, rarely snores loudly enough that others complain. He occasionally has trouble sleeping when he has a cold. He occasionally wakes up gasping for breath during the night. He occasionally has breathing problems at night observed by others. He rarely sweats excessively at night. He never notices his heart pounding or beating irregularly during the night. He rarely falls asleep during the day, never falls asleep involuntarily, nor does he fall asleep while driving. He never experiences loss of muscle tone with strong emotion. He reports rarely having difficulty at work due to excessive sleepiness. He never feels paralyzed on waking or falling asleep. He never experiences vivid dreams upon waking or falling asleep. He never feels afraid of going to sleep. He never has nightmar es. He occasionally recalls his dreams. He frequently has thoughts racing through his mind. He rarely feels sad or depressed. He constantly feels anxiety. He rarely notices parts of his body jerk. He never kicks during the night. He never feels crawling or aching feelings in his legs. He rarely feels leg pain at night. He never has morning jaw pain, occasionally grinds his teeth at night. He never feels bothered by pain during the day, never awakened by pain during the night. He occasionally wakes up feeling stiff in the morning, and he rarely wakes feeling sore or achy. He never awakens with pain in his neck, spine, or joints. Normal bedtime is 10:00 p.m., falling asleep within 30 minutes but sometimes requiring up to 50 minutes to fall asleep. he wakes between 2 and 3 times during the night for 15 minutes, stays in bed. His normal wake time is 7:00 a.m.. On weekends, bedtime may be anywhere between 10:00 p.m. and midnight, wake time is 9:00 a.m.. He estimates getting 8 hours of sleep at night. He takes naps in the afternoon or evening, and a short nap lasting 10-15 minutes may be refreshing. He is drowsy for 1 hour after waking. He feels better in the morning compared to other times of day. Habits:??Tobacco: Former smoker Caffeine: 3 servings per day Alcohol: average 3 servings per day Recreational substances: none PMFSH Past Medical History Medical History NELDA (obstructive sleep apnea) Seasonal allergies DJD (degenerative joint disease) of knee Chronic pain of right knee Hypersomnolence Encounter for routine adult health examination without abnormal findings Post-nasal drainage Pain with bowel movements Colon cancer screening Abnormal finding of blood chemistry Prostate cancer screening GERD (gastroesophageal reflux disease) BMI 27.0-27.9,adult Renal cyst Encounter for preventive health examination Fever Cough Upper abdominal pain Hyperchloremia Surgical History Surgical History S/P knee surgery Family History Family History Mother Family history of lung cancer Father Acute myocardial infarction Unknown Heart disease Hypertension Cancer Sibling , 59 Myocardial infarction Social History Social History Smoking status: Former smoker (now non smoker) Tobacco type: cigars Alcohol intake: current Substance use: never Substance use type: does not use Do You Feel Safe in your Home?: Yes Lack of Transportation: No Lack of Food: Never True Current Housing: I Have Housing Concerned About Future Housing: No Difficulty Paying Gas/Electric Bills: No Difficulty Paying for Meds: No Currently Unemployed: No Education: Bachelor's Degree Difficulty w/ Childcare or Family Care: No Living arrangements: with family Occupation/Education: occupation Additional occupation/education comments: Business [employer] Gender identity (if verbalized by the patient): Male Medications Home Medications ?Medication ?Instructions ?Recorded ?Confirmed ?Type hydrocortisone 2.5 % topical cream 1 applic RECTAL JANICE LY PRN 12/26/21 01/26/25 Rx with perineal applicator hemorrhoids #30 grams (Anusol-HC) aspirin 81 mg tablet,delayed 81 mg PO DAILY 06/25/22 0 01/26/25 History release (Adult Low Dose Aspirin) azelastine 137 mcg (0.1 %) nasal 2 spray intranasal Q1 2H PRN 07/21/23 01/26/25 Rx spray seasonal allergies #30 mL Dental Appliance for Sleep Apnea #1 ea 08/12/23 Rx colchicine 0.6 mg tablet 0.6 mg PO QID PRN gout #20 t abs 08/14/23 01/26/25 Rx famotidine 20 mg tablet See Rx Instructions .Route 1 01/26/25 Rx .COMPLEX #180 tabs atorvastatin 40 mg tablet See Rx Instructions .Route 0 09/19/24 01/26/25 Rx .COMPLEX #90 tabs fluticasone propionate 50 See Rx Instructions .Route 0 10/10/24 01/26/25 Rx mcg/actuation nasal .COMPLEX #48 grams spray,suspension evolocumab 140 mg/mL subcutaneous See Rx Instructions .Route 01/16/25 01/26/25 Rx pen injector (Repatha SureClick) .COMPLEX #2 mL zolpidem 10 mg tablet (Ambien) 10 mg PO QHS PRN sleep #1 tablet 02/22/25 Rx lisinopril 10 mg tablet See Rx Instructions .Route 1 Rx .COMPLEX #90 tabs Sleep Procedure A split night polysomnogram using the [employer] multi-channel system recorded the standard physiologic parameters including EEG, EOG, submentalis EMG, anterior tibialis EMG, EKG, body position, nasal and oral airflow using nasal pressure sensor and thermistor. Respiratory parameters of chest and abdominal movements were recorded with Respiratory Inductance Plethysmography belts. Oxygen saturation was recorded by pulse oximetry. Video monitoring was also performed. Sleep stages, periodic limb movements, and EEG arousals were scored in 30 second The patient took a sleep aid but the environmental health technician was not sure what he took. After the baseline portion the patient met criteria for a titration with an AHI of 6.8 using a 4% criteria and desaturation to 84%. He chose a medium ResMed AirFit N 30 I nasal mask, started at CPAP 5, increased to CPAP 7, final pressure was CPAP 8cm. At CPAP 7 cm, the patient spent 62.5 minutes in bed, 3 minute awake, 56 minutes in non-REM and 3.5 minutes in REM. The sleep efficiency was 95.2% with residual apnea-hypopnea index of 2.0. The lowest saturation was 95%. He had significantly more REM at CPAP 8 but had an increase in his central apneas. The residual apnea-hypopnea index at that pressure was 18.3 associated with 13 central apneas, 1 obstructive apnea and 9 hypopneas. Sleep Architecture During the diagnostic portion of the study, the total recording time was 174.4 minutes. The total sleep time was 141.0 minutes. Sleep latency was 11.4 minutes. REM latency was 105.5 minutes. Sleep Efficiency was 80.9%. The patient had 18 awakenings for an awakening index of 7.7. Wake after sleep onset time was 22.0 minutes. The patient spent 19.0 minutes, 13.5% of total sleep time in Stage N1. The patient spent 87.5 minutes, 62.1% in Stage N2. The patient spent 0.0 minutes, 0.0% in Stage N3. The patient spent 34.5 minutes, 24.5% in Stage REM sleep. At 01:33:15 AM the patient was placed on PAP treatment. During the treatment portion of the study, the total recording time was 268.5 minutes. The total sleep time was 225.0 minutes. Sleep latency was 8.0 minutes. REM latency was 67.0 minutes. Sleep Efficiency was 83.8%. Wake after Sleep Onset time was 36.0 minutes. The patient spent 28.5 minutes, 12.7% of total sleep time in Stage N1. The patient spent 162.5 minutes, 72.2% in Stage N2. The patient spent no time in Stage N3. The patient spent 34.0 minutes, 15.1% in Stage REM. Respiratory Analysis During the diagnostic portion of the study, the patient had 11 hypopneas, 5 obstructive apneas, no mixed apneas, and no central apneas for an overall Apnea Hypopnea Index of 6.8 events per hour. The REM Apnea Hypopnea Index was 24.3. The NREM Apnea Hypopnea Index was 2.8. The patient had a Central Apnea Hypopnea Index of 0. There were no Respiratory Effort Related Arousals. The Respiratory Disturbance Index is 12.3 events per hour. There was no evidence of Vish- [place] Respirations. During the treatment portion of the study, the patient had 6 hypopneas, 1 obstructive apnea, no mixed apneas, and 16 central apneas for an overall Apnea Hypopnea Index of 6.1 events per hour. The REM Apnea Hypopnea Index was 5.3. The NREM Apnea Hypopnea Index was 6.3. The patient had a Central Apnea Hypopnea Index of 4.3. There were no Respiratory Effort Related Arousals. The Respiratory Disturbance Index is 8.0 events per hour. There was no evidence of Vish-Marin Respirations. Arousals During the diagnostic portion of the study, there were a total of 51 arousals for an arousal index of 21.7. There were 8 respiratory arousals for an index of 3.4. There were 4 periodic limb movement arousals for an index of 1.7. There were 1 isolated limb movement arousals for an index of 0.4. There were 38 spontaneous arousals for an index of 16.2. During the treatment portion of the study, there were a total of 55 arousals for an index of 14.7. There were 9 respiratory arousals for an index of 2.4. There were - periodic limb movement arousals for an index of -. There were 3 isolated limb movement arousals for an index of 0.8. There were 43 spontaneous arousals for an index of 11.5. Periodic Limb Movements During the diagnostic portion of the study, the patient had 5 isolated limb mov ements with an index of 2.1. The patient had 47 periodic limb movements with an index of 20.0. The patient had a total of 52 limb movements with a total limb movement index of 22.1. During the treatment portion of the study, the patient had 26 isolated limb movements with an index of 6.9. The patient had no periodic limb movements. The patient had a total of 26 limb movements with a total limb movement index of 6.9. Oximetry Data During the diagnostic portion of the study, the patient had an average oxygen saturation of 95% in wake with a minimum oxygen saturation of 91% and a maximum oxygen saturation of 99%-. The patient had an average oxygen saturation of 94.4% in sleep with a minimum oxygen saturation of 84% and a maximum oxygen saturation of 98%. The patient had 32 oxygen desaturations resulting in an Oxygen Desaturation Index of 13.6. The patient spent 0.5 minutes, 0.3% of total sleep time with an oxygen saturation less than 88%. During the treatment portion of the study, the patient had an average oxygen saturation of 96.6% in wake with a minimum oxygen saturation of 92% and a maximum oxygen saturation of 99%. The patient had an average oxygen saturation of 95.7% in sleep with a minimum oxygen saturation of 92% and a maximum oxygen saturation of 99%. The patient had 27 oxygen desaturations resulting in an Oxygen Desaturation Index of 7.5. The patient spent no time with an oxygen saturation less than 88%. Snoring Profile During the diagnostic portion, snoring was mild and intermittent, eliminated during CPAP titration. Cardiac Profile During the diagnostic portion of the study, the EKG showed normal sinus rhythm. The average pulse rate was 58.3 bpm. The minimum pulse rate was 47 bpm. The maximum pulse rate was 88 bpm. No arrhythmias noted. During the treatment portion of the study, the EKG showed normal sinus rhythm. The average pulse rate was 54.7 bpm. The minimum pulse rate was 46 bpm. The maximum pulse rate was 79 bpm. No arrhythmias noted. EEG Profile Unremarkable, no evidence of seizures. Assessment and Plan Assessment and Plan (1) NELDA (obstructive sleep apnea): Code(s): G47.33 - Obstructive sleep apnea (adult) (pediatric) Status: Acute Assessment and Plan: This split night sleep study on 02/23/2025 shows mild obstructive sleep apnea with an overall apnea-hypopnea index of 6.8 worse in the supine position 21.1 with desaturation to 84% during REM. He had significant improvement using a medium ResMed AirFit N 30 I nasal mask at a pressure of CPAP 7 cm. At CPAP 7 cm, the patient spent 62.5 minutes in bed, 3 minute awake, 56 minutes in non-REM and 3.5 minutes in REM. The sleep efficiency was 95.2% with residual apnea- hypopnea index of 2.0. The lowest saturation was 95%. He had significantly more REM at CPAP 8 but had an increase in his central apneas. The residual apnea-hypopnea index at that pressure was 18.3 associated with 13 central apneas, 1 obstructive apnea and 9 hypopneas. He should not use an oral device as CPAP 7 cm open his airway and his oral device no longer fits properly. He occasionally grinds his teeth at night however when obstructive sleep apnea is treated with CPAP, this often stops. Clinical correlation is recommended. He should be asked about jaw pain at his initial compliance visit. Data The data obtained during this sleep study is adequate for interpretation. Certification This sleep study has been reviewed by a board certified sleep medicine physician.
[2025-03-28 12:29] VITALS: BMI 27.0
== END 2025-02-24 06:36 | disposition home or self-care (01) ==
LOC: ANHCSM 09:58
PROVIDERS: PCP Internal Medicine; Visit Provider Internal Medicine
DX: G47.10 Hypersomnia, unspecified (principal); G47.33 Obstructive sleep apnea (adult) (pediatric)
CPT/HCPCS: 95811